=== PATIENT | female | born 1940 | race Caucasian/White ===

== ENCOUNTER 2016-05-15 11:04 | Observation (INO) | payer MEDICARE, BC ==
[~2016-05-15] VITALS: Ht 167.6 cm; Wt 53.1 kg
[2016-05-15] MEDS ORDERED: ASPIRIN 325 MG TAB PO STA (12:01)
[2016-05-15] MEDS ORDERED: MELO-110 PO (12:25)
[2016-05-15] MEDS ORDERED: MET25 PO (12:26)
[2016-05-15] MEDS ORDERED: HYDR200T39 PO (12:27)
[2016-05-15] MEDS ORDERED: FOLI-49 PO (12:27)
[2016-05-15] MEDS ORDERED: METO50TA16 PO (12:27)
[2016-05-15 12:36] LABS: ADD SCAN DIFF NO
[2016-05-15 12:39] LABS: BASOPHIL # 0.1 10^3/ul (0.0-0.1); EOSINOPHILS % 0.2 % (0.0-7.0); HEMOGLOBIN 12.6 g/dl (12.0-16.0); LYMPHOCYTES # 1.5 10^3/ul (0.8-2.9); LYMPHOCYTES % 14.3 % (15.0-51.0); MEAN CORPUSCULAR HGB CONC 34.1 g/dl (32.0-37.0); MEAN CORPUSCULAR VOLUME 96.9 fl (82.0-101.0); MEAN PLATELET VOLUME 9.7 fl (7.4-10.4); MONOCYTE # 0.7 10^3/ul (0.3-0.9); MONOCYTES % 7.2 % (0.0-11.0); NEUTROPHIL # 7.8 10^3/ul (1.6-7.5); NEUTROPHILS % 76.9 % (39.0-77.0); PLATELET COUNT 284 10^3/UL (140-415); RED BLOOD COUNT 3.82 10^6/ul (4.20-5.40); RED CELL DISTRIBUTION WIDTH 12.8 % (11.5-14.5); WHITE BLOOD COUNT 10.2 10^3/ul (4.8-10.8)
[2016-05-15 12:51] LABS: CHLORIDE 103 mmol/L (97-110); POTASSIUM 4.5 mmol/L (3.5-5.1); SODIUM 140 mmol/L (135-144)
[2016-05-15 12:53] LABS: CREATININE 1.06 mg/dl (0.44-1.00)
[2016-05-15 12:54] LABS: ANION GAP 18 (8-16); BLOOD UREA NITROGEN 28 mg/dl (7-20); CALCIUM 9.6 mg/dl (8.4-10.2); CARBON DIOXIDE 24 mmol/L (21-31); GLUCOSE 95 mg/dl (70-220)
--- NOTE | 2016-05-15 13:06 | RADRPT ---
PROCEDURE: XR Chest. CLINICAL INDICATION: Chest pain. TECHNIQUE: Chest x-ray, single view. COMPARISON: 08/04/2007. FINDINGS: The heart is enlarged and unchanged in size and configuration. Aortic arch atherosclerotic calcific ation is observed. Hyperinflation is present. There is no evidence of pulmonary consolidation or l arge pleural effusion. Skeletal structures and upper abdomen are unremarkable. IMPRESSION: Stable cardiomegaly. Mild hyperinflation. RPTAT: AA .Katerian Garcia MD, MD Date Time Electronically viewed and signed by .Katerina Garcia MD, MD on 05/15/2016 13:06 .T/
[2016-05-15 13:22] LABS: INR 0.98
[2016-05-15 13:23] LABS: PARTIAL THROMBOPLASTIN TIME 27.5 Sec (25.0-35.0)
[2016-05-15 13:36] LABS: TROPONIN-I < 0.010 ng/ml (0.00-0.12)
--- NOTE | 2016-05-15 14:51 | RADRPT ---
PROCEDURE: CT brain without contrast CLINICAL INDICATION: Left arm and weakness, numbness 10 hours TECHNIQUE: CT of the brain without contrast performed on a multidetector CT scanner, with multiplan ar reformats. One or more of the following dose reduction techniques were used: Automated exposure control, adjustment in mA and / or kV according to patient size, use of iterative reconstructive brian hnique. CTDIvol = 38 mGy; DLP = 634 mGy-cm. COMPARISON: None available FINDINGS: No acute intracranial hemorrhage is identified. No extra-axial fluid collection is seen. There is no mass effect. No midline shift is identified. Ventricles and sulci are mild to moderately enlarged compatible with volume loss. There are mild areas of hypodensity in the periventricular - deep white matter which are nonspecific but suggestive of chronic small vessel ischemic changes. Morel-white differentiation is preserved. There is a small cystic lesion in the pineal gland measuring 6 mm with marginal calcification. Atherosclerotic calcifications of the proximal intracranial arteries are noted. Osseous structures are unremarkable. Mastoid air cells and imaged paranasal sinuses grossly clear. IMPRESSION: 1. No acute intracranial pathology identified. Consider further assessment with MRI as clinically indicated. 2. Mild to moderate volume loss, with mild chronic small vessel ischemic changes. 3. 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 RPTAT: EE .Deng Schultz MD, Date Time Electronically viewed and signed by .Deng Schultz MD, on 05/15/2016 14:51 .O/
[2016-05-15] MEDS ORDERED: ACETAMINOPHEN 325 MG TAB PO PRN (15:30)
[2016-05-15] MEDS ORDERED: DOCUSATE SODIUM 100 MG CAP PO PRN (15:30)
[2016-05-15] MEDS ORDERED: NACL 0.9% 3 ML SYG IV SCH (15:30)
--- NOTE | 2016-05-15 15:41 | ERA ---
ER Documentation Chief Complaint Date/Time DATE: 05/15/16 TIME: 15:26 Chief Complaint Pt L arm pain and numbness since last night. Pt dx of tachycardia. HPI This 76-year-old female presents to ER for left arm pain and numbness that began last night. 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 States that his symptoms are completely related to her arm. She also has no neck pain or limited range of motion.. ROS All systems reviewed and are negative except as per history of present illness. Medications Home Meds Reported Medications Hydroxychloroquine Sulfate* (Hydroxychloroquine Sulfate*) 200 Mg Tablet, 200 MG PO BID, TAB 05/15/16 Folic Acid* (Folic Acid*) 1 Mg Tablet, 1 MG PO DAILY, TAB 05/15/16 Metoprolol Succinate* (Toprol XL*) 50 Mg Tab.er.24h, 50 MG PO DAILY, #30 TAB 05/15/16 Methotrexate* (Methotrexate*) 2.5 Mg Tab, 10 MG PO EVERY 7 DAYS, TAB 05/15/16 Meloxicam* (Mobic*) 15 Mg Tablet, 15 MG PO DAILY, #30 TAB WITH FOOD 05/15/16 Allergies Allergies: Coded Allergies: Sulfa (Sulfonamide Antibiotics) (Verified Allergy, Unknown, 05/15/16) clarithromycin (Verified Allergy, Unknown, 05/15/16) PMhx/Soc History of Surgery: Yes (gallbladder) Hx Miscellaneous Medical Probl: Yes (lupus) Hx Alcohol Use: No Hx Substance Use: No Hx Tobacco Use: No Smoking Status: Never smoker Physical Exam Vitals Vital Signs Date Time Temp Pulse Resp B/P Pulse Ox O2 Delivery O2 Flow Rate FiO2 05/15/16 14:57 76 18 115/65 98 Room Air 05/15/16 12:15 Nasal Cannula 2 05/15/16 11:09 97.4 87 20 124/57 99 Physical Exam Const: [] No distress Head: Atraumatic Eyes: Normal Conjunctiva ENT: Normal External Ears, Nose and Mouth. Neck: Full range of motion..~ No meningismus. Resp: Clear to auscultation bilaterally Cardio: Regular rate and rhythm, no murmurs Abd: Soft, non tender, non distended. Normal bowel sounds Skin: No petechiae or rashes Back: No midline or flank tenderness Ext: No cyanosis, or edema, distal pulses intact all 4 extremities Neur: Awake and alert and oriented 3, cranial nerves II through XII intact, no cerebellar deficits, left programming equipment operator strength 3 out of 5, right programming equipment operator strength 5 out of 5. No proximal muscle weakness. 2 point sensation intact but reportedly different on the left than the right. No drift, NIH stroke scale equals 2 Psych: Normal Mood and Affect Result Diagram: 05/15/16 1219 05/15/16 1219 Results 24 hrs Laboratory Tests Test 05/15/16 12:19 05/15/16 13:00 Anion Gap 18 Basophils # 0.110^3/ul Basophils % 1.0% Blood Urea Nitrogen 28mg/dl Calcium Level 9.6mg/dl Carbon Dioxide Level 24mmol/L Chloride Level 103mmol/L Creatinine 1.06mg/dl Eosinophils # 0.010^3/ul Eosinophils % 0.2% Glucose Level 95mg/dl Hematocrit 37.0% Hemoglobin 12.6g/dl Lymphocytes # 1.510^3/ul Lymphocytes % 14.3% Mean Corpuscular Hemoglobin 33.0pg Mean Corpuscular Hemoglobin Concent 34.1g/dl Mean Corpuscular Volume 96.9fl Mean Platelet Volume 9.7fl Monocytes # 0.710^3/ul Monocytes % 7.2% Neutrophils # 7.810^3/ul Neutrophils % 76.9% Nucleated Red Blood Cells # 0.010^3/ul Nucleated Red Blood Cells % 0.0/100WBC Platelet Count 51949^3/UL Potassium Level 4.5mmol/L Red Blood Count 3.8210^6/ul Red Cell Distribution Width 12.8% Sodium Level 140mmol/L Troponin I < 0.010ng/ml White Blood Count 10.210^3/ul Activated Partial Thromboplast Time 27.5Sec INR International Normalized Ratio 0.98 Prothrombin Time 13.0Sec Prothrombin Time Ratio 1.0 Current Medications Medications (Trade) Dose Ordered Sig/Arabella Route PRN Reason Start Time Stop Time Status Last Admin Dose Admin Aspirin (Aspirin) 325 mg ONCE STAT PO 05/15/16 12:01 05/15/16 12:02 DC 05/15/16 12:21 Procedures/MDM 76-year-old female with symptoms concerning for possible acute coronary syndrome but more concerning for possible stroke. Patient does have T-wave inversions in EKG but has no chest pain or elevated troponin. Head CT is normal. Patient's symptoms started to long ago for TPA to be an option. She was given 125 aspirin in the emergency room when her head CT was negative for any acute hemorrhage. Spoke with Dr. Dumont will be admitting. I also spoke with Dr. Ramos who will see the patient on consult. Cause been placed to Dr. Patiño's office who is the fancy stitcher of the patient. She is being admitted to telemetry for further workup and management. EKG interpretation: Normal sinus rhythm rate 82, left axis deviation, T-wave inversions in lateral leads, nonspecific ventricular conduction delay. Cardio monitor interpretation: Normal sinus rhythm without arrhythmia Chest x-ray interpretation: No acute process no widened mediastinum or pneumothorax no pulmonary edema, no infiltrate, no acute fractures Brain CT interpretation: I see no acute process, no hemorrhage no mass effect no midline shift, age-related volume loss, no fracture Departure Diagnosis: Primary Impression: CVA (cerebral vascular accident) Additional Impressions: Pain of left arm Arm paresthesia, left Condition: Serious ROSA PRUETT DO May 15, 2016 15:36
[2016-05-15] MEDS: ENOXAPARIN 40 MG/0.4 ML SYG SC SCH (16:33)
[2016-05-15] MEDS: FAMOTIDINE 20 MG TAB PO SCH (16:34)
[2016-05-15 16:48] LABS: CK-MB 2.49 ng/ml (0.0-2.4)
[2016-05-15 16:51] LABS: TROPONIN-I 0.013 ng/ml (0.00-0.12)
[2016-05-15 17:30] VITALS: TEMP 98
[2016-05-15 19:01] LABS: CK-MB 2.3 ng/ml (0.0-2.4)
[2016-05-15 19:04] LABS: TROPONIN-I 0.01 ng/ml (0.00-0.12)
--- NOTE | 2016-05-15 19:23 | CONS ---
DATE OF ADMISSION: 05/15/2016 DATE OF CONSULTATION: 05/15/2016 TYPE OF CONSULTATION: Neurology. Thank you, Dr. Campoverde, for your kind referral for evaluation of possible stroke. HISTORY OF PRESENT ILLNESS: The patient is a 76-year-old lady with past medical history of hypertension, skin lupus, arthritis, as well as a past medical history of tachycardia, who woke up last night with excruciating pain in the left hand, which gradually ascended to the shoulder level. This was accompanied by weakness in the arm as well as some numbness in the hand. The symptoms have been improving. She still has some numbness in the left hand, maybe mild weakness as well. The patient had chest x-ray shows mild hyperinflation, stable cardiomegaly. 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 LABORATORY DATA: Shows essentially normal CBC. Basic metabolic panel: BUN 28 , creatinine 1.6. CK 79. Troponins negative. Normal PT and PTT. HOME MEDICATIONS: 1. Hydrochloroquine. 2. Methotrexate. 3. Metoprolol. 4. Meloxicam. 5. Folate. ALLERGIES: 1. SULFA DRUGS. 2. CLARITHROMYCIN. SOCIAL HISTORY: No alcohol, tobacco, drug use. FAMILY HISTORY: Noncontributory. REVIEW OF SYSTEMS: All pertinent positives included in the above history of present illness. The patient has chronic low back pain, but no neck pain. She also had history of polio in childhood, but no residual. PHYSICAL EXAMINATION: VITAL SIGNS: Temperature 98.0, 77 pulse, 18 respirations, 101/54 blood pressure. GENERAL: Not in acute distress, lying in bed. HEENT: Normocephalic, atraumatic head. NECK: No carotid bruits. No thyromegaly. LUNGS: Clear to auscultation bilaterally. CARDIAC: Normal cardiac rhythm and sounds. ABDOMEN: Soft, nontender. EXTREMITIES: No cyanosis, clubbing, or edema. NEUROLOGIC: She is awake, alert, and oriented x3 with fluent speech. Cranial nerve examination shows intact visual nguyen bilaterally. Pupils reactive from 3 to 2 mm bilaterally. Extraocular movements intact without nystagmus. Symmetrical face with preserved facial strength and sensation. Tongue is in midline. Palate elevates symmetrically. Motor strength examination shows very mild weakness in the left upper extremity, predominantly on chemist instrumentation, about 4/5. There is some amount of give way. No pronator drift. The rest within normal limits. Sensory examination shows diminution of perception of vibration in bilateral toes and also diminished vibration and pinprick in the left hand. Deep tendon reflexes 2+ upper extremities and knees, absent ankle jerks. Downgoing toes bilaterally. Coordination preserved on [id number] testing. No dysmetria or tremor. Gait was not assessed. Here patient was put on aspirin and Lovenox for deep vein thrombosis prevention , as well as Pepcid. Echocardiogram and EKG requested. IMPRESSION: Severe pain in the left upper extremity, started in the hand, associated with weakness and numbness, resolving. Etiology of the problem is not clear to me. I doubt that she had a stroke because of such a severe pain is usually not part of stroke symptomatology. She denies any neck pain or discomfort. Plexopathy usually does not get better that fast, plus she has no reflex abnormality. I was asking if patient maybe slept in a somewhat awkward position, maybe with her hand bent, but she stated that she usually sleeps on the right side and she does not think that it was a position that provoked her pain. To be on the safer side, I think it is reasonable to obtain MRI of brain and cervical spine. Will also do venous ultrasound of the left upper extremity. She has normal pulses and warm hands. I will follow results of her studies. Thank you very much for this interesting consultation. I will continue to follow the patient. Dictated By: KENISHA JOHNSON/WELLINGTON Conf#: [id number] DID#: [id number] CC: ROSA CAMPOVERDE MD;*EndCC* MTDD
[2016-05-15 20:00] VITALS: BP 115/57; RESP 18; Ht 167.6 cm; Wt 53.1 kg
[2016-05-15 20:39] VITALS: PULSE 80
[2016-05-15] MEDS: HYDROXYCHLOROQUINE 200 MG TAB PO SCH (21:00)
[2016-05-15] MEDS ORDERED: METHOTREXATE 2.5 MG TAB PO SCH (21:00)
[2016-05-15] MEDS: FOLIC ACID 1 MG TAB PO SCH (21:00)
[2016-05-15] MEDS: METOPROLOL (XL) 50 MG TAB PO SCH (21:00)
[2016-05-15 21:31] LABS: CK-MB 2.22 ng/ml (0.0-2.4)
[2016-05-15 21:34] LABS: TROPONIN-I 0.013 ng/ml (0.00-0.12)
--- NOTE | 2016-05-15 22:46 | RADRPT ---
PROCEDURE: US DVT. CLINICAL INDICATION: Left upper extremity pain. TECHNIQUE: Multiple longitudinal and transverse images of the left upper extremity veins were obta ined with hernandez scale and color Doppler imaging. 2D grayscale measurements with compression, color D oppler flow, and augmentation was performed. COMPARISON: No prior studies are available for comparison. FINDINGS: The left internal jugular, subclavian, axillary, brachial, cephalic, basilic, antecubital, radial, u lnar, cephalic, and basilic veins are patent. IMPRESSION: 1. No left upper extremity DVT or SVT. RPTAT: HTAR .Ivan Purcell MD, MD Date Time Electronically viewed and signed by .Ivan Purcell MD, MD on 05/15/2016 22:45 .R/
[2016-05-16] VITALS (12 sets, daily range): BP systolic 100–120; BP diastolic 53–59; PULSE 65–80; RESP 16–20
[2016-05-16 01:28] LABS: CK-MB 1.96 ng/ml (0.0-2.4)
[2016-05-16 02:13] LABS: TROPONIN-I 0.013 ng/ml (0.00-0.12)
[2016-05-16 06:59] LABS: ADD SCAN DIFF NO
[2016-05-16 07:02] LABS: BASOPHIL # 0.1 10^3/ul (0.0-0.1); BASOPHILS % 1.4 % (0.0-2.0); EOSINOPHILS % 0.2 % (0.0-7.0); HEMATOCRIT 36.7 % (37.0-47.0); HEMOGLOBIN 12.3 g/dl (12.0-16.0); LYMPHOCYTES # 2.2 10^3/ul (0.8-2.9); LYMPHOCYTES % 33.9 % (15.0-51.0); MEAN CORPUSCULAR HEMOGLOBIN 32.3 pg (29.0-33.0); MEAN CORPUSCULAR HGB CONC 33.5 g/dl (32.0-37.0); MEAN CORPUSCULAR VOLUME 96.3 fl (82.0-101.0); MEAN PLATELET VOLUME 9.3 fl (7.4-10.4); MONOCYTE # 0.7 10^3/ul (0.3-0.9); MONOCYTES % 10.3 % (0.0-11.0); NEUTROPHIL # 3.5 10^3/ul (1.6-7.5); NEUTROPHILS % 53.9 % (39.0-77.0); PLATELET COUNT 264 10^3/UL (140-415); RED BLOOD COUNT 3.81 10^6/ul (4.20-5.40); RED CELL DISTRIBUTION WIDTH 12.9 % (11.5-14.5); WHITE BLOOD COUNT 6.5 10^3/ul (4.8-10.8)
[2016-05-16 07:25] LABS: ALBUMIN 3.4 g/dl (3.3-4.9)
[2016-05-16 07:26] LABS: POTASSIUM 4.3 mmol/L (3.5-5.1)
[2016-05-16 07:28] LABS: ALBUMIN/GLOBULIN RATIO 0.97; BILIRUBIN,INDIRECT 0.1 mg/dl (0-1.1); BILIRUBIN,TOTAL 0.1 mg/dl (0.2-1.3); CREATININE 0.83 mg/dl (0.44-1.00); TOTAL PROTEIN 6.9 g/dl (6.1-8.1)
[2016-05-16 07:29] LABS: CALCIUM 9.3 mg/dl (8.4-10.2)
[2016-05-16] MEDS: MELOXICAM 15 MG TAB PO SCH (08:23)
[2016-05-16] MEDS: ASPIRIN (EC) 325 MG TAB PO SCH (08:23)
[2016-05-16] MEDS: ENOXAPARIN 40 MG/0.4 ML SYG SC SCH (08:25)
--- NOTE | 2016-05-16 08:28 | HP ---
Date/Time of Note Date/Time of Note DATE: 05/16/16 TIME: 08:22 Assessment/Plan VTE Prophylaxis VTE Prophylaxis Intervention: LMWH Lines/Catheters IV [facility] ([facility] Saline Lock Urinary Cath still in place: No Assessment/Plan Problems: (1) Pain of left arm Status: Acute Comment: I doubt that this represents any type of cardiac syndrome she will be seen by cardiology regardless. I am more concerned this may represent some type of a neurologic issue although again my index suspicion for that is not as strong after having the patient have some time to settle down the hospital and interviewing her myself. I suspect were dealing with here as a musculoskeletal injury which is already self resolving. For now she will have physical therapy we will go ahead with MRI scans of the brain and the cervical spine to evaluate her. Assessment/Plan History of SLE; she will continue her medications Hypertension she will continue her medications. HPI/ROS Admit Date/Time Admit Date/Time May 15, 2016 at 15:34 Hx of Present Illness Generally vibrant functional 76-year-old female admitted with left upper extremity pain and weakness. She had been in her usual state of health and had been visiting with family members. She had walks her somewhat large dogs using her left arm to guide these animals. She reports she went to sleep May 14 to May 15 in good condition but was awakened with the onset of left upper arm pain. This radiated down to the elbow and into the hand with some numbness and tingling in the hand as if the hand was falling asleep. The pain progressively got worse and she was unable to use the arm. There was no facial weakness no change in her ability to speak sleep see and there were no lower extremity symptomatology. In addition to this she had no dyspnea no shortness of breath no palpitations no nausea no vomiting no diaphoresis. She drove herself in to our emergency room where she was evaluated. Please see the dictation of Dr. Love DOMINGUEZ Constitutional: no complaints (Denies fever chills or sweats) Eyes: no complaints (Denies symptomatology) ENT: no complaints Respiratory: no complaints Cardiovascular: no complaints (Please see history of present illness) Gastrointestinal: no complaints Genitourinary: no complaints Musculoskeletal: back pain (She has known sciatica this is not changed) Skin: no complaints (Please note she has lupus with facial manifestations on the skin) Neurologic: other (Please see history of present illness) Endocrine: no complaints Lymphatic: no complaints Psychological: no complaints PMH/Family/Social Past Medical History SLE; osteoarthrosis/DJD; lumbar disc disease with sciatica; Medical History: hypertension Past Surgical History Past Surgical Hx: noncontributory Family History Significant Family History: hypertension Social History Alcohol Use: none Smoking Status: Former smoker Drug Use: none Exam/Review of Systems Vital Signs Vitals Vital Signs Date Time Temp Pulse Resp B/P Pulse Ox O2 Delivery O2 Flow Rate FiO2 05/16/16 08:15 97.9 71 18 120/59 93 05/15/16 17:30 Room Air 05/15/16 12:15 2 Intake and Output 05/15/16 05/15/16 05/16/16 15:00 23:00 07:00 Intake Total 120 ml 60 ml Balance 120 ml 60 ml Exam Constitutional: alert, oriented Psych: nl mood/affect, no complaints Head: atraumatic, normocephalic Eyes: EOMI, nl conjunctiva, nl lids ENMT: mucosa pink and moist, nl external ears & nose, nl lips & teeth, nl nasal mucosa & septum Neck: non-tender, other (No bruits), supple Respiratory: clear to auscultation, normal air movement Cardiovascular: nl pulses, regular rate and rhythm Gastrointestinal: nl liver, spleen, non-tender, soft Musculoskeletal: nl extremities to inspection Extremities: normal pulses, other (There is no reproducible tenderness in the left upper extremity. There is a modest decrease in strength in the left upper extremity there is no palpable cord or other vascular issue) Neurological: UNIT NURSE II-XII intact, nl mental status, nl speech, nl strength ( Left upper extremity with 5- out of 5 strength) Skin: nl turgor, rash or lesions Lymph: nl lymph nodes Labs Result Diagram: 05/16/1661905/16/16619 Medications Medications Current Medications Aspirin (Ecotrin) 325 mg DAILY PO ; Start 05/16/16 at 09:00 Acetaminophen (Tylenol Tab) 650 mg Q6H PRN PO PAIN LEVEL 1-3 OR FEVER Last administered on 05/15/16t 23:58; Admin Dose 650 MG; Start 05/15/16 at 15:30 Docusate Sodium (Colace) 100 mg Q12H PRN PO CONSTIPATION; Start 05/15/16 at 15: 30 Famotidine (Pepcid) 20 mg Q24H PO Last administered on 05/15/16 16:34; Admin Dose 20 MG; Start 05/15/16 at 15:30 Enoxaparin Sodium (Lovenox) 40 mg DAILY SC Last administered on 05/15/16 16:33 ; Admin Dose 40 MG; Start 05/15/16 at 15:30 Folic Acid (Folic Acid) 1 mg HS PO ; Start 05/15/16 at 21:00 Hydroxychloroquine Sulfate (Plaquenil) 400 mg HS PO ; Start 05/15/16 at 21:00 Meloxicam (Mobic) 15 mg DAILY PO ; Start 05/16/16 at 09:00 Metoprolol Succinate (Toprol Xl) 50 mg HS PO ; Start 05/15/16 at 21:00 Methotrexate (Methotrexate) 10 mg We@21 PO ; Start 05/18/16 at 21:00 ROSA JAVED MD May 16, 2016 08:28
--- NOTE | 2016-05-16 09:16 | CONS ---
Date/Time of Note Date/Time of Note DATE: 05/16/16 TIME: 09:09 Assessment/Plan Assessment/Plan Chief Complaint/Hosp Course L arm pain- severe, evaluated by neuro MRI pending. likely more msk by history. she has ruled out for ACS. EKG is abnl, but unchanged, no acute ischemic abnl. echo today shows moderate lv systolic dysfunction, with some region wma. however did have recent negative stress test. - neuro evaluation pending - pt improving - no evidence of acute ischemia, recent negative stress - cont asa - check lipids add low dose statin - cont bb - cont tele monitoring overnight NICM- LVEF previously 45%, now 35%. recent negative stress test. - cont metoprolol xl 50mg daily - await mri results, if improved can add low dose acei - after acute issues resolve, could consider left heart catheterization given worsening LVEF. this is not likely related to acute presentation, so could consider outpatient evaluation. h/o SVT - on bb - no events on tele SLE - on chronic therapy Problems: Consultation Date/Type/Reason Admit Date/Time May 15, 2016 at 15:34 Date of Consultation: May 16, 2016 Type of Consultation: Cardiology Reason for Consultation L arm pain Referring Provider: ROSA JAVED MD Hx of Present Illness Ms. Dunn is a 76-year-old woman with h/o of NICM who follows with Dr. Jimenez as an outpatient for cardiac care. Pt now admitted for acute onset of L arm pain/weakness while sleeping 2 night s ago. Pt states she was sleeping, awoke with severe L arm pain from shoulder to ahand with tingling feeling as well and unable to move arm due to pain. Pt denies any cp/pressure, jaw/arm pain , n/v, diaphoresis, palpitations, dizziness, syncope. Pt denies previous history of pain. P tpresented to [facility] where VS were stable, CT head was without acute abnl. Pt has ruled out for acs with serial negative troponin. Patient states pain is improved almost gone. Pt denies pnd, orthopnea, edema. She is otherwise active, can walk her dogs without cp/sob/arm pain. Of note, pt was recently found to have ant/septal hypokinesis of echo in summer 2015, has stress test which showed no infarct, ischemia. mild lv systolic dysfunction. lvef 45-50%. Eyes: no complaints (Denies symptomatology) ENT: no complaints Respiratory: no complaints Cardiovascular: no complaints (Please see history of present illness) Gastrointestinal: no complaints Genitourinary: no complaints Musculoskeletal: back pain (She has known sciatica this is not changed) Skin: no complaints (Please note she has lupus with facial manifestations on the skin) Neurologic: other (Please see history of present illness) Lymphatic: no complaints Psychological: nl mood/affect, no complaints Past Medical History Bulging lumbar disc (722.10) (M51.26) Chronic obstructive pulmonary disease (496) (J44.9) Chronic systolic heart failure Mitral valve disorder (424.0) (I05.9) Supraventricular tachycardia (427.89) (I47.1) Systemic lupus erythematosus (710.0) (M32.9) History of diverticulitis of colon (V12.79) (Z87.19) 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) History of Peptic Ulcer (V12.71) Past Surgical History History of Appendectomy History of Cholecystectomy Family History Significant Family History: other (+ acute RI in family) Social History Alcohol Use: none Smoking Status: Former smoker Drug Use: none Exam/Review of Systems Vital Signs Vitals Vital Signs Date Time Temp Pulse Resp B/P Pulse Ox O2 Delivery O2 Flow Rate FiO2 05/16/16 08:51 67 05/16/16 08:15 97.9 18 120/59 93 05/15/16 17:30 Room Air 05/15/16 12:15 2 Intake and Output 05/15/16 05/15/16 05/16/16 15:00 23:00 07:00 Intake Total 120 ml 60 ml Balance 120 ml 60 ml Exam Constitutional: alert, oriented Psych: nl mood/affect, no complaints Head: atraumatic, normocephalic Eyes: EOMI, nl conjunctiva, nl lids ENMT: nl external ears & nose, nl nasal mucosa & septum Neck: non-tender, supple, No jvd Respiratory: clear to auscultation, normal air movement Cardiovascular: S3, S4, nl pulses, regular rate and rhythm, systolic murmur, No diastolic murmur, No jugular venous distention (JVD) Gastrointestinal: non-tender, soft Musculoskeletal: range of motion (nrml), No joint tenderness, No muscle weakness Extremities: normal pulses Neurological: TURPENTINER II-XII intact, nl mental status, nl speech, nl strength Skin: other (bruising on L cheeck) Results Result Diagram: 05/16/1620 05/16/16 0620 Results 24 hrs Laboratory Tests Test 05/15/16 12:19 05/15/16 13:00 05/15/16 16:08 05/15/16 18:29 Anion Gap 18 H Basophils # 0.1 Basophils % 1.0 Blood Urea Nitrogen 28 H Calcium Level 9.6 Carbon Dioxide Level 24 Chloride Level 103 Creatinine 1.06 H Eosinophils # 0.0 Eosinophils % 0.2 Glucose Level 95 Hematocrit 37.0 Hemoglobin 12.6 Lymphocytes # 1.5 Lymphocytes % 14.3 L Mean Corpuscular Hemoglobin 33.0 Mean Corpuscular Hemoglobin Concent 34.1 Mean Corpuscular Volume 96.9 Mean Platelet Volume 9.7 Monocytes # 0.7 Monocytes % 7.2 Neutrophils # 7.8 H Neutrophils % 76.9 Nucleated Red Blood Cells # 0.0 Nucleated Red Blood Cells % 0.0 Platelet Count 284 Potassium Level 4.5 Red Blood Count 3.82 L Red Cell Distribution Width 12.8 Sodium Level 140 Troponin I < 0.010 0.013 0.010 White Blood Count 10.2 Activated Partial Thromboplast Time 27.5 INR International Normalized Ratio 0.98 Prothrombin Time 13.0 Prothrombin Time Ratio 1.0 Creatine Kinase 79 69 Creatine Kinase Index 3.2 3.3 Creatinine Kinase MB (Mass) 2.49 H 2.30 Test 05/15/16 20:40 05/16/16 00:45 05/16/16 06:20 Creatine Kinase 67 66 Creatine Kinase Index 3.3 3.0 Creatinine Kinase MB (Mass) 2.22 1.96 Troponin I 0.013 0.013 Alanine Aminotransferase (ALT/SGPT) 56 Albumin 3.4 Albumin/Globulin Ratio 0.97 Alkaline Phosphatase 161 H Anion Gap 15 Aspartate Amino Transf (AST/SGOT) 43 Basophils # 0.1 Basophils % 1.4 Blood Urea Nitrogen 21 H Calcium Level 9.3 Carbon Dioxide Level 24 Chloride Level 104 Creatinine 0.83 Direct Bilirubin 0.00 Eosinophils # 0.0 Eosinophils % 0.2 Globulin 3.50 H Glucose Level 85 Hematocrit 36.7 L Hemoglobin 12.3 Indirect Bilirubin 0.1 Lymphocytes # 2.2 Lymphocytes % 33.9 Mean Corpuscular Hemoglobin 32.3 Mean Corpuscular Hemoglobin Concent 33.5 Mean Corpuscular Volume 96.3 Mean Platelet Volume 9.3 Monocytes # 0.7 Monocytes % 10.3 Neutrophils # 3.5 Neutrophils % 53.9 Nucleated Red Blood Cells # 0.0 Nucleated Red Blood Cells % 0.0 Platelet Count 264 Potassium Level 4.3 Red Blood Count 3.81 L Red Cell Distribution Width 12.9 Sodium Level 139 Total Bilirubin 0.1 L Total Protein 6.9 White Blood Count 6.5 # Medications Medications Current Medications Aspirin (Ecotrin) 325 mg DAILY PO Last administered on 05/16/16 08:23; Admin Dose 325 MG; Start 05/16/16 at 09:00 Acetaminophen (Tylenol Tab) 650 mg Q6H PRN PO PAIN LEVEL 1-3 OR FEVER Last administered on 05/15/16 23:58; Admin Dose 650 MG; Start 05/15/16 at 15:30 Docusate Sodium (Colace) 100 mg Q12H PRN PO CONSTIPATION; Start 05/15/16 at 15: 30 Famotidine (Pepcid) 20 mg Q24H PO Last administered on 05/15/16 16:34; Admin Dose 20 MG; Start 05/15/16 at 15:30 Enoxaparin Sodium (Lovenox) 40 mg DAILY SC Last administered on 05/16/16 08:25 ; Admin Dose 40 MG; Start 05/15/16 at 15:30 Folic Acid (Folic Acid) 1 mg HS PO ; Start 05/15/16 at 21:00 Hydroxychloroquine Sulfate (Plaquenil) 400 mg HS PO ; Start 05/15/16 at 21:00 Meloxicam (Mobic) 15 mg DAILY PO Last administered on 05/16/16 08:23; Admin Dose 15 MG; Start 05/16/16 at 09:00 Metoprolol Succinate (Toprol Xl) 50 mg HS PO ; Start 05/15/16 at 21:00 Methotrexate (Methotrexate) 10 mg We@21 PO ; Start 05/18/16 at 21:00 Procedures Procedures CXR images reviewed, no acute abnl CT head report reviewed in emr EKG reviewed: NSR, inferior/ant q waves, lateral twi. unchanged from outpt ekg KAMRON HASSAN May 16, 2016 09:15
--- NOTE | 2016-05-16 14:32 | RADRPT ---
Echocardiogram Report Patient Name: SONNY CORTEZ Gender: Female Date: 1940 Study Date: 16-May-2016 Cotton Stomper: Cari Pathak [facility] Location: 5552 Ref. Physician: ROSA JAVED Quality: Adequate Procedures: Transthoracic echocardiogram with complete 2D, M-Mode, and doppler examination. Indications: Transient Ischemic Attack. 2D/M Mode Doppler Measurement Value Normal Ranges Measurement Value Normal Ranges LVIDd 2D 5.6 3.5 - 5.6 cm AV Peak Chet 1.2 m/sec LVIDs 2D 3.6 2.1 - 4.1 cm AV Peak PG 5.4 mmHg LVPWd 2D 1.1 0.6 - 1.1 cm LVOT Peak Chet 1.0 m/sec IVSd 2D 1.0 0.6 - 1.1 cm LVOT Peak PG 4.0 mmHg AoR Diam 2D 2.9 2.0 - 3.7 cm MV E Peak Chet 0.5 m/sec EDV 2D 152.1 cm3 MV A Peak Chet 0.6 m/sec ESV 2D 48.6 cm3 MV E/A 0.8 LA Dimen 2D 3.7 2.3 - 4.0 cm MV Decel Time 132 msec MV Decel Glades 4 MV E/A 0.8 TR Peak Chet 3.5 m/sec TR Peak PG 49.9 mmHg RVSP 53.0 mmHg Findings Left Ventricle: Mild concentric left ventricular hypertrophy. Mild enlargement of left ventricle cavity. Moderate global left ventricular systolic dysfunction. Ejection fraction is visually estimated at 35 %. Tissue Doppler/Mitral Doppler indices are consistent with impaired relaxation (Stage I diastolic dysfunction). These segments of the LV are hypokinetic mid septum segment, inferior apex segment, septum base segment, inferior mid segment and inferior base segment. Right Ventricle: Normal right ventricular size. Normal right ventricular systolic function. Left Atrium: The left atrium is normal in size. Right Atrium: The right atrium is normal in size. Mitral Valve: Mitral valve leaflets appear mildly thickened. Mild mitral annular calcification. Mild mitral valve regurgitation. Aortic Valve: No hemodynamically significant aortic stenosis by doppler. Aortic cusps appear mildly calcified. Trileaflet aortic valve. Trace aortic valve regurgitation. Tricuspid Valve: Normal appearance of the tricuspid valve. Right ventricular systolic pressure is consistent with moderate pulmonary hypertension. Estimated peak PA systolic pressure 53 mmHg. There is mild tricuspid regurgitation. Pulmonic Valve: Normal pulmonic valve appearance. There is trace pulmonic regurgitation. Pericardium: Trivial pericardial effusion. Aorta: Normal aortic root. IVC: Normal size and normal respiratory collapse consistent with normal right atrial pressure. Conclusions Mild concentric left ventricular hypertrophy. Mild enlargement of left ventricle cavity. Moderate global left ventricular systolic dysfunction. Ejection fraction is visually estimated at 35 %. Tissue Doppler/Mitral Doppler indices are consistent with impaired relaxation (Stage I diastolic dysfunction). These segments of the LV are hypokinetic mid septum segment, inferior apex segment, septum base segment, inferior mid segment and inferior base segment. Normal right ventricular size. Normal right ventricular systolic function. Normal appearance of the tricuspid valve. Right ventricular systolic pressure is consistent with moderate pulmonary hypertension. Estimated peak PA systolic pressure 53 mmHg. There is mild tricuspid regurgitation. Trivial pericardial effusion. Normal size and normal respiratory collapse consistent with normal right atrial pressure. No Vegetation, masses, or thrombi seen. Electronically Signed By: Ozzie Blake 16-May-2016 14:31:12 -0800 Patient Name: SONNY CORTEZ Study Date: 16-May-2016 [id number]
[2016-05-16] MEDS: FAMOTIDINE 20 MG TAB PO SCH (15:47)
[2016-05-16] MEDS: FOLIC ACID 1 MG TAB PO SCH (19:56)
[2016-05-16] MEDS: HYDROXYCHLOROQUINE 200 MG TAB PO SCH (19:57)
[2016-05-16] MEDS: METOPROLOL (XL) 50 MG TAB PO SCH (20:05)
[2016-05-16] MEDS ORDERED: ATORVASTATIN 10 MG TAB PO SCH (21:00)
[2016-05-17] VITALS (7 sets, daily range): BP systolic 100–114; BP diastolic 55–60; PULSE 58–70; RESP 17–20
[2016-05-17 06:56] LABS: CHOL/HDL RATIO 2.6 RATIO
--- NOTE | 2016-05-17 08:29 | CONS ---
Date/Time of Note Date/Time of Note DATE: 05/17/16 TIME: 08:22 Assessment/Plan Assessment/Plan Chief Complaint/Hosp Course L arm pain- resolved, no abnl on head ct. . she has ruled out for ACS. EKG is abnl, but unchanged, no acute ischemic abnl. echo shows moderate lv systolic dysfunction, with some region wma. however this is chronic and pt did have recent negative stress test. - mgmt per primary/neuro - no evidence of acute ischemia, recent negative stress Dilated cardiomyopathy- likely nonischemic, does have some regional wma with LVEF previously 45%, now 35%. recent negative stress test. - cont asa - cont low dose statin - cont metop xl 50mg daily - unable to add acei at this time given lower bp - will follow up closely as outpatient, consider [facility] for further eval of cardiomyopathy. Chronic systolic heart failure- elevated bnp, but appears euvolemic on exam. no e/o of acute exacerbation - as above re: meds - does not require diuretic at this time - low na diet - daily wts as outpt h/o SVT - on bb - no events on tele SLE - on chronic therapy Problems: Consultation Date/Type/Reason Admit Date/Time May 15, 2016 at 15:34 Initial Consult Date 05/16/16 Type of Consultation: Cardiology Referring Provider: ROSA JAVED MD 24 HR Interval Summary Free Text/Dictation no acute events. pt denies recurrent pain/weakness. no cp,jaw/neck pain, sob, palp, dizziness. tele reviewed: no events, nsr Constitutional: improved, no complaints Detailed Summary Eyes: no complaints ENT: no complaints Respiratory: no complaints Cardiovascular: no complaints Gastrointestinal: no complaints Genitourinary: no complaints Exam/Review of Systems Vital Signs Vitals Vital Signs Date Time Temp Pulse Resp B/P Pulse Ox O2 Delivery O2 Flow Rate FiO2 05/17/16 07:56 97.8 68 20 106/60 96 05/15/16 17:30 Room Air 05/15/16 12:15 2 Intake and Output 05/16/16 05/16/16 05/17/16 14:59 22:59 06:59 Intake Total 840 ml Balance 840 ml Exam Constitutional: alert, oriented Psych: nl mood/affect, no complaints Head: atraumatic, normocephalic Eyes: EOMI, nl conjunctiva, nl lids ENMT: nl external ears & nose, nl nasal mucosa & septum Neck: non-tender, supple, No jvd Respiratory: clear to auscultation, normal air movement Cardiovascular: S3, S4, nl pulses, regular rate and rhythm, systolic murmur, No diastolic murmur, No jugular venous distention (JVD) Gastrointestinal: non-tender, soft Musculoskeletal: range of motion (nrml), No joint tenderness, No muscle weakness Extremities: normal pulses Neurological: CAN WASHER II-XII intact, nl mental status, nl speech, nl strength Skin: other (bruising on L cheeck) Results Result Diagram: 05/16/16 0620 05/16/16 0620 Results 24 hrs Laboratory Tests Test 05/17/16 05:50 B-Type Natriuretic Peptide 998 H Cholesterol Level 167 Cholesterol/HDL Ratio 2.6 HDL Cholesterol 62 LDL Cholesterol, Calculated 84 Triglycerides Level 103 Medications Medications Current Medications Aspirin (Ecotrin) 325 mg DAILY PO Last administered on 05/16/16 08:23; Admin Dose 325 MG; Start 05/16/16 at 09:00 Acetaminophen (Tylenol Tab) 650 mg Q6H PRN PO PAIN LEVEL 1-3 OR FEVER Last administered on 05/15/16 23:58; Admin Dose 650 MG; Start 05/15/16 at 15:30 Docusate Sodium (Colace) 100 mg Q12H PRN PO CONSTIPATION; Start 05/15/16 at 15: 30 Famotidine (Pepcid) 20 mg Q24H PO Last administered on 05/16/16 15:47; Admin Dose 20 MG; Start 05/15/16 at 15:30 Enoxaparin Sodium (Lovenox) 40 mg DAILY SC Last administered on 05/16/16 08:25 ; Admin Dose 40 MG; Start 05/15/16 at 15:30 Folic Acid (Folic Acid) 1 mg HS PO Last administered on 05/16/16 19:56; Admin Dose 1 MG; Start 05/15/16 at 21:00 Hydroxychloroquine Sulfate (Plaquenil) 400 mg HS PO Last administered on 19:57; Admin Dose 400 MG; Start 05/15/16 at 21:00 Meloxicam (Mobic) 15 mg DAILY PO Last administered on 05/16/16 08:23; Admin Dose 15 MG; Start 05/16/16 at 09:00 Metoprolol Succinate (Toprol Xl) 50 mg HS PO Last administered on 05/16/16 20: 05; Admin Dose 50 MG; Start 05/15/16 at 21:00 Methotrexate (Methotrexate) 10 mg We@21 PO ; Start 05/18/16 at 21:00 Atorvastatin Calcium (Lipitor) 10 mg HS PO ; Start 05/16/16 at 21:00 KAMRON HASSAN May 17, 2016 08:28
[2016-05-17] MEDS: ASPIRIN (EC) 325 MG TAB PO SCH (08:56)
[2016-05-17] MEDS: MELOXICAM 15 MG TAB PO SCH (08:57)
[2016-05-17] MEDS: ENOXAPARIN 40 MG/0.4 ML SYG SC SCH (08:59)
--- NOTE | 2016-05-17 09:21 | PDOCDIS ---
Discharge Instructions DIAGNOSIS Discharge Diagnosis: Hypertension; SLE; systolic and diastolic CHF; CONDITION Patient Condition: Good HOME CARE INSTRUCTIONS: Diet Instructions: Reduced SodiumSpecial Diet: Regular ACTIVITY: Activity Restrictions: No Restrictions Do not operate Power Tool [facility]LLOW [facility]AP[facility]MENTS [facility] primary care Dr. Mo in 2 weeks ROSA JAVED MD May 17, 2016 09:21
[2016-05-17] MEDS ORDERED: ASPI325T32 PO (09:23)
[2016-05-17] MEDS ORDERED: ATOR10TA65 PO (09:23)
--- NOTE | 2016-05-17 09:25 | DS ---
Date/Time of Note Date/Time of Note DATE: 05/17/16 TIME: 09:23 Discharge Summary Admission/Discharge Info Admit Date/Time May 15, 2016 at 15:34 Discharge Date/Time 05/17/2016 Final Diagnosis Musculoskeletal chest pain; CHF diastolic and systolic; hypertension; SLE; Patient Condition: Good Consults Neurology; cardiology Procedures CT scan brain; echocardiogram Hx of Present Illness Generally vibrant functional 76-year-old female admitted with left upper extremity pain and weakness. She had been in her usual state of health and had been visiting with family members. She had walks her somewhat large dogs using her left arm to guide these animals. She reports she went to sleep May 14 to May 15 in good condition but was awakened with the onset of left upper arm pain. This radiated down to the elbow and into the hand with some numbness and tingling in the hand as if the hand was falling asleep. The pain progressively got worse and she was unable to use the arm. There was no facial weakness no change in her ability to speak sleep see and there were no lower extremity symptomatology. In addition to this she had no dyspnea no shortness of breath no palpitations no nausea no vomiting no diaphoresis. She drove herself in to our emergency room where she was evaluated. Please see the dictation of Dr. Aleman Hospital Course L arm pain- resolved, no abnl on head ct. . she has ruled out for ACS. EKG is abnl, but unchanged, no acute ischemic abnl. echo shows moderate lv systolic dysfunction, with some region wma. however this is chronic and pt did have recent negative stress test. - mgmt per primary/neuro - no evidence of acute ischemia, recent negative stress Dilated cardiomyopathy- likely nonischemic, does have some regional wma with LVEF previously 45%, now 35%. recent negative stress test. - cont asa - cont low dose statin - cont metop xl 50mg daily - unable to add acei at this time given lower bp - will follow up closely as outpatient, consider [facility] for further eval of cardiomyopathy. Chronic systolic heart failure- elevated bnp, but appears euvolemic on exam. no e/o of acute exacerbation - as above re: meds - does not require diuretic at this time - low na diet - daily wts as outpt h/o SVT - on bb - no events on tele SLE - on chronic therapy E[place]son 76-year-old female admitted with left arm pain. This fully resolved without major specific interaction over 8 hours. Based on description was felt that this was much more likely to be musculoskeletal than represent either cardiac physiology or neurologic issue. CT scan of the brain was unremarkable. From a cardiac standpoint her echocardiogram did demonstrate diastolic and systolic dysfunction with systolic ejection fraction of 35%. She is now stable to be discharged home in improved condition as compared to the time of admission she has no known communicable diseases she is not hazard to herself or others her rehabilitation potential is good. Home Meds Active Scripts Atorvastatin (Atorvastatin) 10 Mg Tablet, 10 MG PO HS for 30 Days, TAB 3 Refills Prov:ROSA JAVED MD 05/17/16 Aspirin (Aspir-Mariela) 325 Mg Tablet.dr, 325 MG PO DAILY for 30 Days, 6 Refills Prov:ROSA JAVED MD 05/17/16 Reported Medications Hydroxychloroquine Sulfate* (Hydroxychloroquine Sulfate*) 200 Mg Tablet, 200 MG PO BID, TAB 05/15/16 Folic Acid* (Folic Acid*) 1 Mg Tablet, 1 MG PO DAILY, TAB 05/15/16 Metoprolol Succinate* (Toprol XL*) 50 Mg Tab.er.24h, 50 MG PO DAILY, #30 TAB 05/15/16 Methotrexate* (Methotrexate*) 2.5 Mg Tab, 10 MG PO EVERY 7 DAYS, TAB 05/15/16 Meloxicam* (Mobic*) 15 Mg Tablet, 15 MG PO DAILY, #30 TAB WITH FOOD 05/15/16 Pending Labs Laboratory Tests Test 05/17/16 05:50 B-Type Natriuretic Peptide 998PG/ML (0-450) Cholesterol Level 167mg/dl (100-200) Cholesterol/HDL Ratio 2.6RATIO HDL Cholesterol 62mg/dl (33-92) LDL Cholesterol, Calculated 84mg/dl Triglycerides Level 103mg/dl (0-149) ROSA JAVED MD May 17, 2016 09:25
[2016-05-18] MEDS ORDERED: METHOTREXATE 2.5 MG TAB PO SCH (21:00)
== END 2016-05-17 12:23 | disposition home or self-care (01) ==
LOC: E/R 11:04 → MS4 15:34
PROVIDERS: ADMIT Internal Medicine; ATTEND Internal Medicine
DX: I50.42 Chronic combined systolic (congestive) and diastolic (congestive) heart failure (principal); R07.89 Other chest pain; I10 Essential (primary) hypertension; M32.9 Systemic lupus erythematosus, unspecified; I42.9 Cardiomyopathy, unspecified; J44.9 Chronic obstructive pulmonary disease, unspecified
CPT/HCPCS: 36415; 70450; 71010; 80048; 80053; 80061; 82550; 82553; 83880; 84484; 85025; 85610; 85730; 87086; 93005; 93306; 93971; 96372; 97163; 97165; 99285; G0378; G8978; G8979; G8980; G8987; G8988; G8989; J1650